=== PATIENT | male | born 1985 | race Caucasian/White ===

== ENCOUNTER 2019-12-07 17:13 | Emergency (ER) | payer OTHER ==
[~2019-12-07] VITALS: Ht 170.2 cm; Wt 86.2 kg
[2019-12-07 17:32] VITALS: BP 139/78
--- NOTE | 2019-12-07 17:41 | NUR ---
34 y/o M presents to ER c/o dental pain since today. Pt pain starts from bottom right and radiatings up to right ear. Pain level 9/10, shooting pain. Pt unable to make a dentist appointment. A&O x4. Respirations even and unlabored. Waiting for ERMD to evaluate pt. Allergies: NKA Med hx: none
[2019-12-07] MEDS ORDERED: KETOROLAC 60 MG/2 ML VIAL IM ONE (17:55)
[2019-12-07 18:31] VITALS: BP 139/78
--- NOTE | 2019-12-07 18:31 | NUR ---
Patient discharged with v/s stable. Written and verbal after care instructions given and explained. Patient alert, oriented and verbalized understanding of instructions. Ambulatory with steady gait. All questions addressed prior to discharge. ID band removed. Patient advised to follow up with PMD. Rx of Amoxicillin 500mg, Ibuprofen 800mg, and [place] 5mg was given. Patient educated on indication of medication including possible reaction and side effects. Opportunity to ask questions provided and answered.
== END 2019-12-07 18:31 | disposition home or self-care (01) ==
LOC: MED 17:13
DX: K04.7 Periapical abscess without sinus (principal)
CPT/HCPCS: 96372; 99283; J1885